=== PATIENT | female | born 1995 | race Caucasian/White ===

== ENCOUNTER 2023-02-28 23:35 | Emergency (ER) | payer OTHER ==
[~2023-02-28] VITALS: Ht 167.6 cm; Wt 154.2 kg
[2023-02-28 23:49] VITALS: BP 137/75; PULSE 110; RESP 17; TEMP 97.4; O2SAT 99
--- NOTE | 2023-02-28 23:52 | NUR ---
TO LOBBY A/W BED AMBULATORY
--- NOTE | 2023-03-01 00:30 | NUR ---
PT AMBULATED TO BED 03, CALL LIGHT W/IN REACH
[2023-03-01 01:15] VITALS: O2SAT 99
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
[2023-03-01] MEDS ORDERED: CARB15DR61 OT (01:36)
--- NOTE | 2023-03-01 02:02 | NUR ---
Patient discharged with v/s stable. Written and verbal after care instructions given and explained. Patient alert, oriented and verbalized understanding of instructions. Ambulatory with steady gait. All questions addressed prior to discharge. ID band removed. Patient advised to follow up with PMD. Rx of debrox otic drops given. Opportunity to ask questions provided and answered.
== END 2023-03-01 02:02 | disposition home or self-care (01) ==
LOC: MED 23:35
DX: H61.23 Impacted cerumen, bilateral (principal); N92.6 Irregular menstruation, unspecified; Z79.899 Other long term (current) drug therapy
CPT/HCPCS: 81025; 99282